=== PATIENT | female | born 1990 | race Caucasian/White ===

== ENCOUNTER 2024-09-23 08:39 | Emergency (ER) | payer BC, SELFPAY ==
[2024-09-23 08:56] VITALS: BP 142/101
[2024-09-23 10:38] VITALS: BP 138/90
--- NOTE | 2024-09-23 16:40 | ED.SKININJ ---
HPI-Injury
General
Chief Complaint: Skin Problem
Source: patient
Exam Limitations: none
Time Seen by Provider: 09/23/24 10:14
Nursing documentation reviewed up to this point in time: agreed with
History of Present Illness-Injury
Initial Injury comments:
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 Denies fever. Feels well otherwise.
Past History
Past History
ED Past Medical History: None
ED Past Surgical History: None
Social History
Tobacco: Non-smoker
Personal: Single
Employment: Employed
Review of Systems
Review of Systems
Allergies reviewed?: Yes
All Other Systems: ROS reviewed and negative except as documented in HPI and ROS
Constitutional: Denies fever
Skin: Reports other (lesion upper mid back)
Phy Exam
Physical Exam
Physical Exam:
PHYSICAL EXAMINATION:
General: no apparent distress, not acutely ill
Neuro: alert and oriented.
Psychiatric: well kept. interactive and cooperative
Musculoskeletal: Moves with ease
Skin: Warm, pink. 1.5 cm non tender, red, round smooth lesion with a cauliflower like surface attached by a pedicle. Not draining. No sign of infection. Surrounding skin is normal
Course
Vital Signs
Initial and Last Documented VS:
Initial Vital Signs
Temp Pulse Resp BP Pulse Ox
98 F 97 16 142/101 99
09/23/24 08:56 09/23/24 08:56 09/23/24 08:56 09/23/24 08:56 09/23/24 08:56
Last Documented Vital Signs
Temp Pulse Resp BP Pulse Ox
98 F 95 16 138/90 97
09/23/24 08:56 09/23/24 10:38 09/23/24 10:38 09/23/24 10:38 09/23/24 10:38
MDM/Problems Addressed
MDM/Problems Addressed:
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 Denies fever. Feels well otherwise.
This is a 1.5 cm non tender, red, round smooth lesion with a cauliflower like surface attached by a pedicle. Not draining. No sign of infection.
This needs excision by junior art director or general surgeon.
Surrounding skin is normal.
Pt will get referral when she gets home to [place]
*Critical Care Note
Total Time (30-74mins, 75-104mins- exclusive of procedures): Not Applicable
ED Attending Note
-
Portions of this chart may have been created with voice recognition software.� Occasional wrong word or��sound alike� substitutions may have occurred due to the inherent limitations of voice recognition software.
Discharge Plan
Departure
Patient Disposition: Home (Routine Discharge)
Date of Disposition: 09/23/24
Time of Disposition: 10:27
Patient with high blood pressure during this ER visit?: No
Condition: Good
Discharge Problem:
Skin lesion of back
Instructions: Skin lesion removal
Referrals:
NONE,* [Family Provider] -
Activity Restrictions/Additional Instructions:
As we discussed, this is a lesion that has to be removed by a Professor Of Geography or General Surgeon.
Contact one in [place] and make next available appointment
Interventions
Interventions:
*Risk Screen - Suicide Last Done: 09/23/24 08:58
*General Assessment Last Done: 09/23/24 10:00
*Neglect/Abuse Screening Last Done: 09/23/24 08:58
ED- Fall Risk Assessment Last Done: 09/23/24 10:36
*ED COVID-19 Vaccine History Last Done: 09/23/24 10:00
*Nursing Disposition Last Done: 09/23/24 10:38
ED-Skin Assessment Last Done: 09/23/24 10:36
Discharge Date and Time
Discharge Date/Time: 09/23/24 10:39
Print Language: MARTINIQUAIS
== END 2024-09-23 10:39 | disposition home or self-care (01) ==
LOC: EMR 08:39
PROVIDERS: EMERGENCY PHYSICIAN Emergency Medicine
DX: L98.9 Disorder of the skin and subcutaneous tissue, unspecified (principal)
CPT/HCPCS: 99282